=== PATIENT | male | born 1980 | race Asian ===

== ENCOUNTER 2018-10-18 09:07 | Emergency (ER) | payer MEDICAID ==
[~2018-10-18] VITALS: Ht 172.7 cm; Wt 96.2 kg
[2018-10-18 09:16] VITALS: BP 130/74; Ht 172.7 cm; Wt 96.2 kg
== END 2018-10-18 11:10 | disposition home or self-care (01) ==
LOC: ED 09:07 → EDSEX 09:07 → ED 11:10
DX: J00 Acute nasopharyngitis [common cold] (principal); F41.9 Anxiety disorder, unspecified; F32.9 Major depressive disorder, single episode, unspecified; F17.210 Nicotine dependence, cigarettes, uncomplicated; Z76.0 Encounter for issue of repeat prescription
CPT/HCPCS: 99406